=== PATIENT | male | born 1995 | race Caucasian/White ===

== ENCOUNTER 2022-04-27 16:52 | Emergency (ER) | payer OTHER ==
[~2022-04-27 16:52] MED LIST: CYCLOBENZAPRINE5 MG PO; NAPROSYN500 MG PO; ZOFRAN4 MG PO
[2022-04-27 17:59] LABS: HEMOGLOBIN 16.4 gm/dl (14.0-17.5); RED BLOOD COUNT 5.69 M/UL (4.20-5.50); WHITE BLOOD COUNT 12.3 K/UL (4.5-11.0)
[2022-04-27 18:17] LABS: BUN/CREATININE RATIO 17 (0-10)
[2022-04-27] MEDS ORDERED: ONDANSETRON ODT4 MG PO (22:28)
== END 2022-04-27 23:27 | disposition home or self-care (01) ==
LOC: ER1 16:52
PROVIDERS: Physician Assistant
DX: K52.9 Noninfective gastroenteritis and colitis, unspecified (principal); F17.210 Nicotine dependence, cigarettes, uncomplicated; Z88.0 Allergy status to penicillin
CPT/HCPCS: 80053; 81001; 82272; 83690; 85025; 96374; 99284; J2405; J7030; Q9967